=== PATIENT | male | born 1960 | race Two or more races ===

== ENCOUNTER 2019-10-03 10:58 | Inpatient (IN) | payer BC ==
[~2019-10-03] VITALS: Ht 167.6 cm; Wt 81.7 kg
--- NOTE | 2019-10-03 11:05 | NUR ---
PT CAME [facility]IB[facility] C/O CHEST PAIN /10 STARTING AT 0800 THIS MORNING RADIATING TO THE LEFT ARM. PT AAOX4, VSS, BREATHING EVEN ADN UNLABORED ON ROOM AIR W/ NO ACUTE DISTRESS NOTED. PT CONNECTED TO THE MONITOR
--- NOTE | 2019-10-03 11:16 | NUR ---
BLOOD DRAWN AND SENT TO LAB
[2019-10-03] MEDS ORDERED: LORAZEPAM 1 MG TABLET ONE (11:17)
[2019-10-03 11:22] LABS: BASOPHILS # (AUTO) 0.1 /CMM (0.0-0.2); BASOPHILS % (AUTO) 1.1 % (0.0-2.0); EOSINOPHILS % (AUTO) 1.1 % (0.0-6.0); HEMATOCRIT 45 % (39-51); HEMOGLOBIN 15.4 g/dL (13.5-17.5); LYMPHOCYTES # (AUTO) 1.5 /CMM (0.8-4.8); LYMPHOCYTES % (AUTO) 20.6 % (20.0-44.0); MEAN CORPUSCULAR HGB CONC 34 g/dl (31.0-36.0); MEAN CORPUSCULAR VOLUME 96 fL (80-96); MONOCYTES # (AUTO) 0.4 /CMM (0.1-1.30); MONOCYTES % (AUTO) 6.3 % (2.0-12.0); NEUTROPHILS % (AUTO) 70.9 % (43.0-81.0); PLATELET COUNT (AUTO) 194 /CMM (150-450); WHITE BLOOD COUNT (AUTO) 7.1 K/uL (4.3-11.0)
--- NOTE | 2019-10-03 11:23 | NUR ---
XRAY AT BEDSIDE
[2019-10-03 11:29] LABS: CALCIUM, SERUM 9.1 mg/dL (8.5-10.1); CARBON DIOXIDE 27 mmol/L (21-32); CHLORIDE 107 mmol/L (98-107); CREATININE 1.1 mg/dL (0.6-1.3); GLUCOSE 119 mg/dL (74-106); POTASSIUM 4.4 mmol/L (3.5-5.1); SODIUM SERUM 141 mmol/L (136-145); UREA NITROGEN, BLOOD 20 mg/dL (7-18)
[2019-10-03] MEDS ORDERED: LORAZEPAM 1 MG TABLET PO ONE (11:30)
[2019-10-03] MEDS ORDERED: OMEP20TA20 PO (11:55)
[2019-10-03] MEDS ORDERED: LORA1TAB PO (11:55)
[2019-10-03] MEDS ORDERED: PARO10TA86 PO (11:55)
[2019-10-03] MEDS ORDERED: RANI-655 PO (11:55)
[2019-10-03] MEDS ORDERED: TEMA15CA5 PO (11:55)
--- NOTE | 2019-10-03 12:20 | NUR ---
CALLED [facility] PAGED ELIER HOWELL
--- NOTE | 2019-10-03 12:57 | NUR ---
REPORT GIVEN TO ADRIÁN ALMODOVAR
[2019-10-03 13:00] VITALS: BP 127/85
--- NOTE | 2019-10-03 13:30 | NUR ---
TELE/DOMESTIC VIOLENCE ADVOCATE PATIENT RECEIVED FROM ER WITH DIAGNOSIS OF CHEST PAIN. PATIENT STATES NO LONGER HAS PAIN BUT PRESSURE IN THE CHEST ON A SCALE OF 3/10. REFUSES ANY PAIN MEDICATION AT THIS TIME. PATIENT FULLY ADMITTED, ADMITTING ORDERS BEING GIVEN BY ELIER HOWELL NP. CALL LIGHT IS WITHIN REACH AND PATIENT IS AWARE OF HOW TO CALL FOR ASSISTANCE WHEN NEEDED. ALL QUESTIONS, CONCERNS ADDRESSED. WILL CONTINUE TO MONITOR.
[2019-10-03] MEDS ORDERED: Z GUARD REMEDY 2 OZ OINT TP PRN (14:00)
[2019-10-03] MEDS ORDERED: MAGNESIUM HYDROXIDE 30 ML UDC PO PRN (14:00)
[2019-10-03] MEDS ORDERED: ACETAMINOPHEN 325 MG TABLET PO PRN (14:00)
[2019-10-03] MEDS ORDERED: ONDANSETRON HCL/PF 4 MG/2 ML VIAL IVP PRN (14:00)
[2019-10-03] MEDS ORDERED: ZOLPIDEM TARTRATE 5 MG TABLET PO PRN (14:00)
[2019-10-03] MEDS ORDERED: HYDROCODONE/APAP 5/325MG 1 EACH TABLET PO PRN (14:00)
[2019-10-03 14:27] VITALS: BP 127/85
[2019-10-03] MEDS: ASPIRIN 81 MG TAB.CHEW PO SCH (14:40)
--- NOTE | 2019-10-03 15:16 | NUR ---
MS/RN S/B Dr Dutta Seen by MD - CT angio with 3D imaging ordered. Consent forms signed.
[2019-10-03 16:00] VITALS: BP 125/88
[2019-10-03] MEDS ORDERED: METOPROLOL TARTRATE INJ 5 MG/5 ML AMPUL ONE ×3 (16:29→17:14)
[2019-10-03] MEDS ORDERED: NITROGLYCERIN 4.9 GM SPRAY ONE (16:35)
[2019-10-03] MEDS: METOPROLOL TARTRATE INJ 5 MG/5 ML AMPUL IVP PRN ×10 (16:39→17:24)
[2019-10-03] MEDS ORDERED: METOPROLOL TARTRATE INJ 5 MG/5 ML AMPUL IVP ONE (17:00)
[2019-10-03] MEDS ORDERED: NITROGLYCERIN 4.9 GM SPRAY SL ONE (17:00)
[2019-10-03] MEDS ORDERED: CT SWABBABLE VALVE TRANS SET 1 EA INFUS.SET MC ONE (17:40)
[2019-10-03] MEDS ORDERED: IOHEXOL-350 100 ML VIAL IV ONE (17:40)
--- NOTE | 2019-10-03 17:54 | NUR ---
FINANCIAL AID COUNSELOR PATIENT BACK FROM CTA PATIENT IS BACK FROM CT ANGIOGRAM. VITALS STABLE BP 110/74 HR 66.
--- NOTE | 2019-10-03 17:56 | NUR ---
INVENTORY MANAGER CLOSING NOTE PATIENT CAME BACK FROM CTA AT 1745. NO RESULTS OF THIS TIME. FAMILY AT THE BEDSIDE. PATIENT IS A/O X4, TELE MONITOR NSR. VITAL SIGNS WNL. PATIENT DENIES ANY PAIN AT THE MOMENT AND IS SHOWING NO SIGNS OF ACUTE DISTRESS OR SOB. H/L 20G IN LAC AND H/L 18G IN RAC ARE BOTH CLEAN AND PATENT. BED IS IN LOWEST POSITION, SIDE RAILS X2 IN UPRIGHT POSITION. CALL LIGHT IS WITHIN REACH AND PATIENT IS AWARE OF HOW TO CALL FOR ASSISTANCE WHEN NEEDED. WILL ENDORSE TO BUSINESS IMPROVEMENT MANAGER.
[2019-10-03] MEDS ORDERED: MAG HYDROX/AL HYDROX/SIMETH 30 ML UDC PO PRN (19:30)
--- NOTE | 2019-10-03 19:31 | NUR ---
NATIONAL SALES TRAINER NOTES SAMREEN HOWELL NP MADE AWARE OF MED RECON. ALSO INFORMED HER REGARDING PATIENT'S FEELING OF HEARTBURN/DISCOMFORT IN THE MIDCHEST AREA. PER PATIENT, HE HAS HISTORY OF ACID REFLUX AND HEARTBURNS AND TAKES MEDICATIONS FOR IT. PER REGI THAPA TO ADD MAALOX PRN. ORDER NOTED AND CARRIED OUT. WILL CONTINUE TO MONITOR.
--- NOTE | 2019-10-03 19:42 | NUR ---
CAMPGROUND MANAGER OPENING NOTES RECEIVED PATIENT IN BED AWAKE, ALERT AND ORIENTED X4, VERBALLY RESPONSIVE, ABLE TO MAKE NEEDS KNOWN. BREATHING EVEN AND UNLABORED. NO SOB NOTED. ON ROOM AIR. SR ON TELE MONITOR. DENIES CHEST PAIN, BUT HAS SOME DISCOMFORT IN THE MIDCHEST AREA. PER PATIENT, HE HAS HISTORY OF ACID REFLUX AND HEARTBURNS. PRN ORDERED PER BRUNILDA JOLLEY. IV ON LEFT AND RIGHT ACT INTACT AND PATENT. AFEBRILE. ALL OTHER NEEDS MET. SAFETY MEASURES IN PLACE. CALL LIGHT WITHIN REACH. WILL CONTINUE TO MONITOR.
[2019-10-03 20:51] VITALS: BP 111/78
--- NOTE | 2019-10-03 20:58 | NUR ---
ADRIÁN FOWLER NOTES BRUNILDA CANNON HERE IN UNIT. INFORMED HIM THAT MED RECON NEEDS TO BE DONE. PER KASSANDRA, HERE WILL DO IT. Addendum: 10/04/19 at 0345 by ANIVAL FOUNTAIN RN ERROR: HE WILL DO IT.
[2019-10-03] MEDS ORDERED: METOPROLOL TARTRATE 25 MG TABLET PO SCH (21:00)
[2019-10-03] MEDS ORDERED: OMEPRAZOLE 20 MG CAPSULE.DR PEG SCH (21:30)
[2019-10-03] MEDS ORDERED: TEMAZEPAM 15 MG CAPSULE PO PRN (21:30)
[2019-10-03] MEDS: PAROXETINE HCL 10 MG TABLET PO SCH (21:32)
--- NOTE | 2019-10-03 21:48 | NUR ---
CREATIVE ARTS THERAPIST NOTES PATIENT'S COMPLAINED OF HEADACHE. ABOUT /. ACHING. OFFERED PAIN MEDICATION BUT PATIENT REFUSED. INSTRUCTED PATIENT TO CALL NURSE IF HE CHANGES HIS MIND.
[2019-10-03] MEDS: LORAZEPAM 1 MG TABLET PO PRN (21:57)
[2019-10-03] MEDS ORDERED: ATORVASTATIN 10 MG TABLET PO SCH (22:00)
[2019-10-04 04:20] VITALS: BP 112/73
[2019-10-04 06:35] LABS: BASOPHILS % (AUTO) 0.5 % (0.0-2.0); HEMATOCRIT 45 % (39-51); HEMOGLOBIN 15.4 g/dL (13.5-17.5); LYMPHOCYTES # (AUTO) 1.3 /CMM (0.8-4.8); MEAN CORPUSCULAR HGB CONC 35 g/dl (31.0-36.0); MEAN CORPUSCULAR VOLUME 95 fL (80-96); MONOCYTES # (AUTO) 0.5 /CMM (0.1-1.30); MONOCYTES % (AUTO) 9.4 % (2.0-12.0); NEUTROPHILS # (AUTO) 2.8 /CMM (1.8-8.9); NEUTROPHILS % (AUTO) 59.1 % (43.0-81.0); PLATELET COUNT (AUTO) 196 /CMM (150-450); RED BLOOD CELL COUNT(AUTO) 4.68 MIL/uL (4.5-6.0); WHITE BLOOD COUNT (AUTO) 4.8 K/uL (4.3-11.0)
[2019-10-04 06:43] LABS: THYROID STIMULATING HORMONE 1.75 uIU/mL (0.358-3.74)
--- NOTE | 2019-10-04 06:48 | NUR ---
SQL DEVELOPER DBA CLOSING NOTES PATIENT RESTING IN BED. NO ACUTE CHANGES THROUGHOUT SHIFT. BREATHING EVEN AND UNLABORED. NO SOB NOTED. ON ROOM AIR. DENIES CHEST PAIN. DENIES N/V. PATIENT DOES HAVE MID CHEST DISCOMFORT BUT REFUSES PAIN MEDICATION. INSTRUCTED TO CALL NURSE IF HE WOULD LIKE PRN MED - VERBALIZED UNDERSTANDING. IV ON LEFT AC AND RIGHT AC INTACT AND PATENT. PATIENT AMBULATORY AND GOES TO RESTROOM. DENIES HAVING ANY DIARRHEA THROUGHOUT SHIFT. ALL OTHER NEEDS ATTENDED TO. SAFETY MEASURES IN PLACE. CALL LIGHT WITHIN REACH. WILL ENDORSE TO ONCOMING NURSE FOR FIDELIA.
[2019-10-04 06:59] LABS: CALCIUM, SERUM 8.9 mg/dL (8.5-10.1); CREATININE 0.9 mg/dL (0.6-1.3); MAGNESIUM 2.1 mg/dL (1.8-2.4); PHOSPHORUS 4.3 mg/dL (2.5-4.9); POTASSIUM 4.1 mmol/L (3.5-5.1)
[2019-10-04] MEDS ORDERED: PANTOPRAZOLE 40 MG TABLET.DR PO SCH (07:30)
--- NOTE | 2019-10-04 07:32 | NUR ---
CARPET YARN WINDER OPERATOR OPENING NOTES PATIENT RECEIVED CURRENTLY RESTING IN BED. NO ACUTE SIGNS OF DISTRESS AND NO COMPLAINTS OF ANY PAIN OR NAUSEA. SR 69. IV LOCATED ON L AC #20 AND R 18 G HL. SAFETY PRECAUTIONS ARE IN PLACE WITH BED IN LOWEST POSITION, SIDE RAILS UP x2, AND CALL LIGHT WITHIN REACH. WILL CONTINUE TO MONITOR.
[2019-10-04 08:06] VITALS: BP 125/81
[2019-10-04] MEDS: ASPIRIN 81 MG TAB.CHEW PO SCH (08:24)
[2019-10-04] MEDS: PAROXETINE HCL 10 MG TABLET PO SCH (08:24)
--- NOTE | 2019-10-04 08:45 | NUR ---
RN NOTE RECEIVED ORDER FROM DR WARNER TO DISCONTINUE TELE AND TRANSFER THE PATIENT TO MS.
[2019-10-04] MEDS: LORAZEPAM 1 MG TABLET PO PRN (09:33)
--- NOTE | 2019-10-04 09:35 | NUR ---
M/S RN NOTES CALLED TO ROOM BY PATIENT AND PATIENT STATED HE WAS HAVING A PANIC ATTACK, REQUESTED MEDICATION. ATIVAN 1MG ADMINISTERED. WILL MONITOR EFFECTIVENESS.
--- NOTE | 2019-10-04 10:18 | NUR ---
M/S RN NOTES PATIENT REASSESSED AFTER GIVEN ATIVAN 1MG. STATED HE FELT BETTER AND LESS ANXIOUS.
[2019-10-04] MEDS ORDERED: ATOR10TA PO (14:12)
[2019-10-04] MEDS ORDERED: ASPI-1169 PO (14:12)
[2019-10-04] MEDS ORDERED: LEVO500T2 PO (14:12)
[2019-10-04] MEDS ORDERED: LEVOFLOXACIN (500MG) 500 MG TABLET PO SCH (15:00)
--- NOTE | 2019-10-04 15:06 | NUR ---
MS/shirt presser Patient discharged to home in stable condition, accompanied by . Heplock X2 and name bands removed. Exit care signed, provided with copy and copies of medical record. Per patient request, one for primary care doctor and one for patient's records. Instructed to follow up with primary care doctor in 7-10 days, stated that he would make appointment this afternoon. Educated patient about the importance of taking all medications as ordered. Informed that prescription for three new medications (lipitor, levaquin, aspirin) had been electronically sent to preferred pharmacy, already verified pharmacy and address. Educated about what each drug was for and possible side effects, patient stated understanding. Time allowed for all questions and concerns to be addressed. All personal belongings returned to patient and accounted for on belongings list. Escorted to main lobby by ALICIA.
== END 2019-10-04 14:44 | disposition home or self-care (01) | DRG 194 ==
LOC: ER 10:58 → TELE 12:58 → MED 10-04 09:03
PROVIDERS: ADMIT Nurse Practitioner Acute Care; ATTEND Hospitalist
DX: J15.9 Unspecified bacterial pneumonia (principal); J98.11 Atelectasis; E86.0 Dehydration; E78.5 Hyperlipidemia, unspecified; F32.9 Major depressive disorder, single episode, unspecified; R79.89 Other specified abnormal findings of blood chemistry; K21.9 Gastro-esophageal reflux disease without esophagitis; F41.9 Anxiety disorder, unspecified
CPT/HCPCS: 36415; 71045-TC; 75574; 80048-TC; 80061-TC; 83735-TC; 84100-TC; 84439-TC; 84443-TC; 84484-TC; 85025-TC; 87081-TC; 93307-TC; G0378; J3490; Q9967